=== PATIENT | female | born 1955 | race Caucasian/White ===

== ENCOUNTER 2018-05-06 09:08 | Inpatient (IN) | payer OTHER ==
[~2018-05-06] VITALS: Ht 160 cm; Wt 83.9 kg
[2018-05-06 09:08] VITALS: BP 221/93
[~2018-05-06 09:08] MED LIST: ASPIR 8181 MG PO; ATORVASTATIN CA40 MG PO; BRILINTA90 MG PO; CARVEDILOL3.125 MG PO; GLUCOPHAGE500 MG PO; GLUCOTROL5 MG PO; LISINOPRIL5 MG PO; NITROGLYCERIN0.4 MG SUBLING; ZYRTEC10 M5 PO
[2018-05-06 09:47] LABS: BASOPHILS 0.9 % (0.0-2.0); EOSINOPHILS 1.5 % (0.0-3.0); HEMATOCRIT 41.8 % (37.0-47.0); HEMOGLOBIN 14.2 gm/dL (12.0-15.0); LYMPHOCYTES 19.6 % (24.0-44.0); MCH 29.6 pg (26.0-34.0); MCHC 33.9 g/dL (28.0-37.0); MCV 87.4 fL (80.0-100.0); MONOCYTES 7.5 % (1.0-8.0); PLATELET COUNT 267 thou/uL (150-400); POLYS 70.5 % (36.0-66.0); RBC 4.78 mil/uL (4.20-5.00); WBC 8.5 thou/uL (4.0-11.0)
[2018-05-06] MEDS ORDERED: CARVEDILOL12.5 MG PO (09:51)
[2018-05-06 09:59] LABS: ANION GAP 8 mmol/L (7-16); APTT 32.5 Seconds (24.5-32.8); BUN 11 mg/dL (7-18); CALCIUM 9.6 mg/dL (8.5-10.1); CHLORIDE 102 mmol/L (98-107); CO2 28 mmol/L (21-32); CREATININE 0.6 mg/dL (0.6-1.0); GLUCOSE 277 mg/dL (74-106); POTASSIUM 4.8 mmol/L (3.5-5.1); PROTIME 9.6 Seconds (9.3-11.4); SODIUM 138 mmol/L (136-145)
[2018-05-06 10:07] LABS: ALBUMIN 4.1 g/dL (3.4-5.0); MAGNESIUM 1.9 mg/dL (1.8-2.4); SGOT 16 U/L (15-37); SGPT 35 U/L (30-65); TOTAL BILIRUBIN 0.4 mg/dL (<0.1-1.0); TOTAL PROTEIN 7.8 g/dL (6.4-8.2); TROPONIN-I <0.06 ng/mL (<0.06)
--- NOTE | 2018-05-06 10:40 | NUR ---
ASSUMED CARE OF PT. AWAIT CT REPORT
[2018-05-06 11:43] LABS: AMP/METHAMP Negative (Negative); BARBITURATES Negative (Negative); BENZODIAZEPINES Negative (Negative); COCAINE Negative (Negative); METHADONE Negative (Negative); OPIATES POSITIVE (Negative); PCP Negative (Negative)
[2018-05-06 12:13] LABS: CHOLESTEROL 177 mg/dL (<200); HDL CHOLESTEROL 57 mg/dL (>40); LDL CHOLESTEROL 99 mg/dL (<100); TC:HDL 3.1 Ratio (Not establshd); TRIGLYCERIDE 106 mg/dL (<150); VLDL 21 mg/dL (<40)
[2018-05-06 12:38] LABS: TSH 1.118 uIU/mL (0.358-3.740)
[2018-05-06 12:49] VITALS: BP 160/73
[2018-05-06 14:03] VITALS: BP 152/75
--- NOTE | 2018-05-06 14:42 | NUR ---
ADM PT CAME IN FROM ER. PT ORIENTED TO ROOM. PRN PAIN MEDS GIVEN. ADM ORDERS CARRIED OUT. WILL CONTINUE TO MONITOR.
[2018-05-06 17:43] VITALS: BP 174/80
[2018-05-06 20:20] VITALS: BP 142/81
[2018-05-07 04:32] VITALS: BP 194/102
[2018-05-07 05:09] LABS: ALBUMIN 3.7 g/dL (3.4-5.0); ANION GAP 12 mmol/L (7-16); BUN 15 mg/dL (7-18); CALCIUM 9.4 mg/dL (8.5-10.1); CHLORIDE 100 mmol/L (98-107); CO2 23 mmol/L (21-32); CREATININE 0.6 mg/dL (0.6-1.0); GLUCOSE 306 mg/dL (74-106); PHOSPHORUS 3.8 mg/dL (2.5-4.9); POTASSIUM 4.5 mmol/L (3.5-5.1); SODIUM 135 mmol/L (136-145); TROPONIN-I <0.06 ng/mL (<0.06)
[2018-05-07 05:30] VITALS: BP 174/78
--- NOTE | 2018-05-07 06:26 | NUR ---
ASSUMED CARE @1900 05/06/18, PT ASSESSMENT AND VSS COMPLETE PER MED-SURG TELE ORDERS, PT ALERT AND ORIENTED X4, PT GIVEN HYDROCODONE FOR PAIN DURING THE SHIFT. THIS AM PT SBP WAS IN THE 190'S, THE LAST DOSE OF LABATELOL WAS GIVEN, PT IN SR THROUGH THE NIGHT. PT ON RA, SATS IN THE HIGH 90'S. PLAN OF CARE- CONT TO MONITOR.
[2018-05-07 08:13] VITALS: BP 184/89
--- NOTE | 2018-05-07 09:56 | EKG ---
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 05/07/18 0956 0920 9 Cain Russell MD, FACC /EPI
--- NOTE | 2018-05-07 09:59 | EKG ---
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 : 1955 Requested By: Serafin Kim Order Number: [id number] MD: Cain Russell Measurements Intervals [place] Rate: 60 P: 63 TN: 234 QRS: 11 QRSD: 94 T: 42 QT: 429 QTc: 429 Interpretive Statements Sinus rhythm Prolonged TN interval Inferior infarct, old Poor R wave progression No previous ECG available for comparison Electronically Signed On 05-07-2018 9:59:37 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
[2018-05-07] MEDS ORDERED: NABUMETONE 750750 M1 PO (10:45)
[2018-05-07 14:25] VITALS: BP 155/65
[2018-05-07 19:58] VITALS: BP 145/67
--- NOTE | 2018-05-07 21:04 | NUR ---
PATIENT IS ALERT AND ORIENTED WITH AT BEDSIDE AND EXPERIENCING POSSIBLE PAIN IN BACK FROM RESPIRATORY ISSUES AND HYPERTENSION. PATIENT WILL BE NPO AT MIDNIGHT WITH CT WITH CONTRAST TOMORROW WITH POSSIBLE DISCHARGE HOME. PATIENT IS VERY ANXIOUS ABOUT HER JOB AND IS CONSIDERING RETIRING SOON.
[2018-05-08 03:16] VITALS: BP 182/64
[2018-05-08 03:21] VITALS: BP 182/64
--- NOTE | 2018-05-08 06:40 | NUR ---
Pt a/o x 4. RA. NPO after midnight. C/o back pain, Morphine IV given. Pt resting in bed comfortably at this time. VSS. No apparent distress noted. Fall precautions maintained. Call light within reach. Will continue to monitor.
[2018-05-08 07:35] VITALS: BP 197/90
[2018-05-08 15:10] VITALS: BP 197/90
== END 2018-05-08 18:00 | disposition home or self-care (01) | DRG 558 ==
LOC: ER 09:08 → EROBS 11:42 → 4W 11:42 → ENTRNSPT 05-08 16:36 → 4W 05-08 18:00
PROVIDERS: Emergency Medicine; ADMIT Hospitalist
DX: M71.58 Other bursitis, not elsewhere classified, other site (principal); S29.012A Strain of muscle and tendon of back wall of thorax, initial encounter; X58.XXXA Exposure to other specified factors, initial encounter; E11.65 Type 2 diabetes mellitus with hyperglycemia; I10 Essential (primary) hypertension; E78.5 Hyperlipidemia, unspecified; I77.6 Arteritis, unspecified; I25.10 Atherosclerotic heart disease of native coronary artery without angina pectoris; Z86.718 Personal history of other venous thrombosis and embolism; Z86.711 Personal history of pulmonary embolism; Z90.49 Acquired absence of other specified parts of digestive tract; Z88.2 Allergy status to sulfonamides; Z90.710 Acquired absence of both cervix and uterus; Z95.5 Presence of coronary angioplasty implant and graft; Z79.82 Long term (current) use of aspirin; Z79.84 Long term (current) use of oral hypoglycemic drugs; Z79.899 Other long term (current) drug therapy; Z87.891 Personal history of nicotine dependence; Y93.89 Activity, other specified; Y92.89 Other specified places as the place of occurrence of the external cause; Y99.8 Other external cause status
CPT/HCPCS: 10045